=== PATIENT | female | born 1970 | race Two or more races ===

== ENCOUNTER → 2018-04-10 | Outpatient (REF) | payer OTHER ==
[2018-04-10 15:18] LABS: RBC, URINE NONE SEEN /hpf (0-3); WBC, URINE NONE SEEN /hpf (0-3)
[2018-04-10 15:19] LABS: BACTERIA, URINE MOD AMOUNT; HYALINE CAST, URINE NONE SEEN /lpf (0-1); SQUAMOUS EPITHELIAL CELL URINE NONE SEEN /hpf (SMALL AMT)
== END ==
LOC: M LAB REF 13:28
PROVIDERS: ATTEND Internal Medicine Nephrology
DX: R31.29 Other microscopic hematuria (principal)

== ENCOUNTER → 2018-04-20 | Outpatient (CLI) | payer OTHER ==
--- NOTE | 2018-04-20 10:00 | REP ---
RENAL AND BLADDER ULTRASOUND: Real-time sonographic evaluation of the kidneys performed. The kidneys are normal in size and echotexture, right kidney measuring 10.9 x 5.3 x 5.0 cm and left kidney 11.7 x 4.9 x 5.2 cm. There is no hydronephrosis bilaterally. There is a cyst in the mid left kidney 1.4 cm in diameter. No other renal abnormality is seen. The urinary bladder is not well distended and no gross mass or calculus is seen. Incidental note is made of an enlarged heterogeneous fibroid uterus. IMPRESSION: No hydronephrosis. Left renal cyst measures 1.4 cm in diameter. Urinary bladder not well distended and not optimally evaluated, with no gross abnormality. Incidental note made of an enlarged fibroid uterus. Electronically Signed by Stanislaw Mayo MD 04/20/2018 01:40 P
== END ==
LOC: EDUNIT# 04-17 11:00 → M RAD 07:00
PROVIDERS: ATTEND Internal Medicine Nephrology
DX: R31.1 Benign essential microscopic hematuria (principal)

== ENCOUNTER → 2019-05-14 | Outpatient (REF) | payer OTHER ==
[2019-05-14 14:23] LABS: BACTERIA, URINE AUTO 1+ (NEGATIVE); MUCUS, URINE SMALL (NEGATIVE); RBC, URINE AUTO 3 /HPF (0-3); SQUAMOUS EPITHELIAL CELL UR AU 3 /HPF (0-6); WBC, URINE AUTO 2 /HPF (0-3)
== END ==
LOC: M LAB REF 13:11
PROVIDERS: ATTEND Internal Medicine Nephrology
DX: R31.29 Other microscopic hematuria (principal)

== ENCOUNTER 2019-08-07 16:50 | Emergency (ER) | payer OTHER ==
[~2019-08-07] VITALS: Ht 162.6 cm; Wt 97.8 kg
[2019-08-07] MEDS ORDERED: VALA500T5 (17:16)
[2019-08-07] MEDS ORDERED: FEXO180T58 (17:16)
[2019-08-07] MEDS ORDERED: DOCU100C16 (17:16)
[2019-08-07] MEDS ORDERED: FLUTISP (17:16)
[2019-08-07] MEDS ORDERED: FLUO20CA22 (17:16)
[2019-08-07] MEDS ORDERED: FLUO10CA15 (17:16)
[2019-08-07] MEDS ORDERED: NORG0.25 (17:16)
[2019-08-07] MEDS ORDERED: QUET1TAB7 (17:16)
[2019-08-07] MEDS ORDERED: SUMA50TA2 (17:16)
[2019-08-07] MEDS ORDERED: METH1TAB40 (17:16)
[2019-08-07] MEDS ORDERED: ISOVUE-370 76% 100ML VIAL As Ordered ONE (18:29)
[2019-08-07 18:34] LABS: BASO % 0.6 % (0.0-1.0); EOS # 0.1 10^3/uL (0.0-0.5); EOS % 1.6 % (0.0-3.0); HEMATOCRIT 37.6 % (36.0-47.0); HEMOGLOBIN 12.4 g/dl (12.0-15.5); LYMPH # 2.5 10^3/uL (1.5-5.0); LYMPH % 48.2 % (24.0-44.0); MEAN CORPUSCULAR HEMOGLOBIN 30.5 pg (27.0-33.0); MEAN CORPUSCULAR VOLUME 92.4 fl (80.0-96.0); MONO # 0.4 10^3/uL (0.0-0.8); MONO % 7.6 % (0.0-5.0); NEUTROPHILS # 2.1 10^3/uL (1.5-8.5); NEUTROPHILS % 41.8 % (36.0-66.0); PLATELET COUNT, AUTOMATED 242 10^3/uL (150-450); RED BLOOD COUNT 4.07 10^6/uL (4.00-5.40); WHITE BLOOD COUNT 5.1 10^3/uL (4.0-10.0)
[2019-08-07 18:59] LABS: CK-MB VALUE MASS 1.1 NG/ML (<3.6); CPK CREATINE PHOSPHOKINASE 149 U/L (26-192); MB/CK RELATIVE INDEX 0.74 (< OR =4); TROPONIN I < 0.02 NG/ML (< 0.10)
--- NOTE | 2019-08-07 19:19 | REPVR ---
PROCEDURE INFORMATION: Exam: CT Angiography Head With Contrast Exam date and time: 08/07/2019 6:52 PM Age: 48 years old Clinical indication: Other: TIA symptoms TECHNIQUE: Imaging protocol: Computed tomography angiography of the head with intravenous contrast. 3D rendering: MIP and/or 3D reconstructed images were created by the technologist. Radiation optimization: All CT scans at this facility use at least one of these dose optimization techniques: automated exposure control; mA and/or kV adjustment per patient size (includes targeted exams where dose is matched to clinical indication); or iterative reconstruction. Contrast material: ISOVUE 370; Contrast volume: 100 ml; Contrast route: IV; COMPARISON: No relevant prior studies available. FINDINGS: Anterior cerebral arteries: No occlusion or significant stenosis. No aneurysm. Right internal carotid artery: Intracranial segment is patent with no significant stenosis or occlusion. No aneurysm. Right middle cerebral artery: No occlusion or significant stenosis. No aneurysm. Right posterior cerebral artery: No occlusion or significant stenosis. No aneurysm. Right vertebral artery: No occlusion or significant stenosis. No aneurysm. Left internal carotid artery: Intracranial segment is patent with no significant stenosis or occlusion. No aneurysm. Left middle cerebral artery: No occlusion or significant stenosis. No aneurysm. Left posterior cerebral artery: No occlusion or significant stenosis. No aneurysm. Left vertebral artery: No occlusion or significant stenosis. No aneurysm. Basilar artery: Tortuous basilar artery. IMPRESSION: No acute findings. Electronically signed by: David Guzman On 08/07/2019 19:19:15 PM
--- NOTE | 2019-08-07 19:20 | REPVR ---
PROCEDURE INFORMATION: Exam: CT Head Without Contrast Exam date and time: 08/07/2019 6:52 PM Age: 48 years old Clinical indication: Other: TIA symptoms TECHNIQUE: Imaging protocol: Computed tomography of the head without contrast. Radiation optimization: All CT scans at this facility use at least one of these dose optimization techniques: automated exposure control; mA and/or kV adjustment per patient size (includes targeted exams where dose is matched to clinical indication); or iterative reconstruction. COMPARISON: No relevant prior studies available. FINDINGS: Brain: Normal. No hemorrhage. Unremarkable white matter. No mass effect. Ventricles: Normal. No ventriculomegaly. Bones/joints: Unremarkable. No acute fracture. Sinuses: Visualized sinuses are unremarkable. No fluid levels. Mastoid air cells: Visualized mastoid air cells are well aerated. Soft tissues: Unremarkable. IMPRESSION: No acute intracranial abnormality. Electronically signed by: David Guzman On 08/07/2019 19:20:43 PM
--- NOTE | 2019-08-07 19:23 | REPVR ---
PROCEDURE INFORMATION: Exam: CT Angiography Neck With Contrast Exam date and time: 08/07/2019 6:52 PM Age: 48 years old Clinical indication: Other: TIA symptoms TECHNIQUE: Imaging protocol: Computed tomography angiography of the neck with intravenous contrast. 3D rendering: MIP and/or 3D reconstructed images were created by the technologist. Radiation optimization: All CT scans at this facility use at least one of these dose optimization techniques: automated exposure control; mA and/or kV adjustment per patient size (includes targeted exams where dose is matched to clinical indication); or iterative reconstruction. Contrast material: ISOVUE 370; Contrast volume: 100 ml; Contrast route: IV; COMPARISON: No relevant prior studies available. FINDINGS: Right common carotid artery: No stenosis. No dissection or occlusion. Right internal carotid artery: No stenosis of the extracranial segment. No dissection or occlusion. Right external carotid artery: No occlusion or stenosis of the origin. Right vertebral artery: No stenosis. No dissection or occlusion. Left common carotid artery: No stenosis. No dissection or occlusion. Left internal carotid artery: No stenosis of the extracranial segment. No dissection or occlusion. Left external carotid artery: No occlusion or stenosis of the origin. Left vertebral artery: No stenosis. No dissection or occlusion. Bones/joints: No acute fracture. Soft tissues: Normal. No significant soft tissue swelling. IMPRESSION: No stenosis or occlusion. REFERENCES: NASCET CRITERIA. The degree of internal carotid artery stenosis is based on NASCET criteria. Normal is no stenosis. Mild is less than 50% stenosis. Moderate is 50-69% stenosis. Severe is 70% to 99% stenosis. Total occlusion is no detectable patent lumen. Electronically signed by: David Guzman On 08/07/2019 19:23:01 PM
[2019-08-07] MEDS ORDERED: LIDO5DIS41 TD (19:29)
[2019-08-07] MEDS ORDERED: LIDOCAINE 5% (LIDODERM) PATCH TD ONE (19:30)
[2019-08-07 19:42] VITALS: BP 148/86
[2019-08-07] MEDS ORDERED: **NOTE PATIENT COMMENT** MISC XX SCH (21:00)
== END 2019-08-07 19:44 | disposition home or self-care (01) ==
LOC: M ED 16:50
DX: M54.2 Cervicalgia (principal); Z91.018 Allergy to other foods; Z79.899 Other long term (current) drug therapy; Z79.3 Long term (current) use of hormonal contraceptives; Z88.8 Allergy status to other drugs, medicaments and biological substances
CPT/HCPCS: 36415; 70450; 70496; 70498; 80047; 82550; 82553; 84484; 85025; 99284; Q9967

== ENCOUNTER 2019-08-30 19:51 | Emergency (ER) | payer OTHER ==
[~2019-08-30] VITALS: Ht 162.6 cm; Wt 76.8 kg
[~2019-08-30 19:51] MED LIST: DOCU100C16; FEXO180T58; FLUO10CA16; FLUO20CA22; FLUTISP; LIDO5DIS41 TD; METH1TAB40; NORG0.25; QUET1TAB7; SUMA50TA2; VALA500T5
[2019-08-30] MEDS ORDERED: BACI500O21 TOP (21:03)
[2019-08-30 21:17] VITALS: BP 161/92
== END 2019-08-30 21:18 | disposition home or self-care (01) ==
LOC: M ED 19:51
DX: T23.151A Burn of first degree of right palm, initial encounter (principal); T31.0 Burns involving less than 10% of body surface; X58.XXXA Exposure to other specified factors, initial encounter; Y92.099 Unspecified place in other non-institutional residence as the place of occurrence of the external cause; Y93.9 Activity, unspecified; Y99.9 Unspecified external cause status; I10 Essential (primary) hypertension; Z79.899 Other long term (current) drug therapy; Z91.012 Allergy to eggs; Z91.018 Allergy to other foods; Z88.8 Allergy status to other drugs, medicaments and biological substances